=== PATIENT | male | born 1980 | race Caucasian/White ===

== ENCOUNTER 2016-11-27 10:19 | Emergency (ER) | payer OTHER ==
[2016-11-27 11:02] VITALS: BP 138/95; PULSE 84; TEMP 98; BMI 28.3
--- NOTE | 2016-11-27 11:04 | PDOC ---
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 Myers, Ortho. C/O LImited Range of Motion. Timing/Duration: 1-3 hours Severity: moderate Past History - Past Medical History Allergies/Adverse Reactions: Allergies Allergy/AdvReac Type Severity Reaction Status Date / Time adalimumab [From Humira] Allergy Severe Swelling Verified 11/27/16 11:06 clindamycin Allergy Severe Rash Verified 11/27/16 10:22 etanercept [From Enbrel] Allergy Severe Swelling Verified 11/27/16 11:06 infliximab [From Remicade] Allergy Severe Swelling Verified 11/27/16 10:22 methotrexate Allergy Severe Swelling Verified 11/27/16 11:06 Penicillins Allergy Severe Rash Verified 11/27/16 10:22 cephalexin monohydrate Allergy Intermediate Rash Verified 11/27/16 10:22 [From Keflex] Home Medications: Ambulatory Orders Cyclobenzaprine HCl [Flexeril 10 mg] 10 mg PO TID PRN #30 tablet 11/27/16 Ibuprofen 800 mg PO TID #30 tablet 11/27/16 GI Disorders: Yes (IBS, ULCERATIVE COLITIS) HTN: Yes Hypercholesterolemia: Yes Seizures: Yes (01/31/2011) - Surgical History Orthopedic Surgery: Yes (LT KNEE ARTHROSCOPY,CTR) - Psycho/Social/Smoking Cessation Hx Anxiety: No Suicidal Ideation: No Smoking Status: No Smoking History: Never smoked Have you smoked in the past 12 months: No Number of Cigarettes Smoked Daily: 0 'Breaking Loose' booklet given: 01/19/15 Hx Alcohol Use: No Drug/Substance Use Hx: No Substance Use Type: Marijuana Hx Substance Use Treatment: No Review of Systems - Review of Systems Able to Perform ROS?: Yes Is the patient limited Macedonian proficient: No Constitutional: No: Symptoms Reported HEENTM: No: Symptoms Reported Respiratory: No: Symptoms reported Cardiac (ROS): No: Symptoms Reported ABD/GI: No: Symptoms Reported : No: Symptoms Reported Musculoskeletal: Yes: See HPI Integumentary: No: Symptoms Reported Neurological: No: Symptoms reported Psychiatric: No: Anxiety, Depression Endocrine: No: Symptoms Reported Hematologic/Lymphatic: No: Symptoms Reported All Other Systems: Reviewed and Negative *Physical Exam - Physical Exam General Appearance: Yes: Nourished, Appropriately Dressed HEENT: positive: EOMI, DEXTER, Normal ENT Inspection, Normal Voice Neck: positive: Trachea midline, Normal Thyroid, Supple Respiratory/Chest: positive: Lungs Clear. 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 Formal Report to Follow *DC/Admit/Observation/Transfer - Discharge Dispostion Condition at time of disposition: Stable - Prescriptions Prescriptions: Cyclobenzaprine HCl [Flexeril 10 mg] 10 mg PO TID PRN #30 tablet PRN Reason: spasm Ibuprofen 800 mg PO TID #30 tablet - Patient Instructions Printed Discharge Instructions: DI for Shoulder Sprain Additional Instructions: Moses- Follow up with your orthopedic doctor and you most probably need an MRI. No Work until you follow up with your ortho doctor and they tell you the full duty is ok. Bert- Dr. Ángel Ferguson - Post Discharge Activity Work/School Note: Back to Work
== END 2016-11-27 11:41 | disposition home or self-care (01) ==
LOC: FER 10:19
DX: S43.402A Unspecified sprain of left shoulder joint, initial encounter (principal); X58.XXXA Exposure to other specified factors, initial encounter; Y93.9 Activity, unspecified; Y92.9 Unspecified place or not applicable; I10 Essential (primary) hypertension; E78.00 Pure hypercholesterolemia, unspecified; K58.9 Irritable bowel syndrome, unspecified; L40.50 Arthropathic psoriasis, unspecified
CPT/HCPCS: 73030-TC-LT; 99283-25

== ENCOUNTER 2018-02-01 08:53 | Emergency (ER) | payer OTHER ==
[2018-02-01 08:59] VITALS: BP 105/68; PULSE 78; TEMP 98.5; BMI 25.7
--- NOTE | 2018-02-01 10:03 | PDOC ---
History of Present Illness - General Chief Complaint: Injury Stated Complaint: INJURY Time Seen by Provider: 02/01/18 09:47 History Source: Patient Exam Limitations: No Limitations - History of Present Illness Initial Comments: 02/01/18 15:32 pt states he twisted left knee at work today causing pain. no swelling or deformity. pt ambulatory. Past History - Past Medical History Allergies/Adverse Reactions: Allergies Allergy/AdvReac Type Severity Reaction Status Date / Time adalimumab [From Humira] Allergy Severe Swelling Verified 02/01/18 08:59 clindamycin Allergy Severe Rash Verified 02/01/18 08:59 etanercept [From Enbrel] Allergy Severe Swelling Verified 02/01/18 08:59 infliximab [From Remicade] Allergy Severe Swelling Verified 02/01/18 08:59 methotrexate Allergy Severe Swelling Verified 02/01/18 08:59 Penicillins Allergy Severe Rash Verified 02/01/18 08:59 cephalexin monohydrate Allergy Intermediate Rash Verified 02/01/18 08:59 [From Keflex] Home Medications: Ambulatory Orders Folic Acid 1 mg PO DAILY 02/01/18 Methotrexate [Mexate -] 5 mg PO Q7D 02/01/18 Rosuvastatin Calcium [Crestor] 40 mg PO HS 02/01/18 COPD: No DVT: No Dementia: No GI Disorders: Yes (IBS, ULCERATIVE COLITIS) HTN: Yes Hypercholesterolemia: Yes Seizures: Yes (01/31/2011) Other medical history: fibromyalgia, psorisis, arthritis - Surgical History Orthopedic Surgery: Yes (LT KNEE ARTHROSCOPY,CTR) - Immunization History Immunization Up to Date: Yes - Suicide/Smoking/Psychosocial Hx Smoking Status: No Smoking History: Never smoked Have you smoked in the past 12 months: No Number of Cigarettes Smoked Daily: 0 'Breaking Loose' booklet given: 01/19/15 Hx Alcohol Use: No Drug/Substance Use Hx: Yes Substance Use Type: Marijuana Hx Substance Use Treatment: No Trauma Specific PMHX - Complaint Specific PMHX Arthritis: No Back Injury: No Neck Injury: No Hx Sacro Iliac Joint Dysfunction: No Review of Systems - Review of Systems Able to Perform ROS?: Yes Is the patient limited Tamaz[place] proficient: No Constitutional: No: Symptoms Reported HEENTM: No: Symptoms Reported Respiratory: No: Symptoms reported Cardiac (ROS): No: Symptoms Reported ABD/GI: No: Symptoms Reported : No: Symptoms Reported Musculoskeletal: Yes: Symptoms Reported *Physical Exam - Vital Signs Last Vital Signs Temp Pulse Resp BP Pulse Ox 98.5 F 78 16 105/68 96 02/01/18 08:56 02/01/18 08:56 02/01/18 08:56 02/01/18 08:56 02/01/18 08:56 - Physical Exam General Appearance: Yes: Nourished, Appropriately Dressed HEENT: positive: EOMI, DEXTER Neck: positive: Supple Musculoskeletal: positive: Normal Inspection Extremity: positive: Normal Capillary Refill, Normal Inspection, Normal Range of Motion, Other (left knee no bony tenderness, no swelling tender laterally with motion flexion and extension) Integumentary: positive: Normal Color, Dry, Warm Neurologic: positive: Fully Oriented, Alert, Normal Mood/Affect, Normal Response , Motor Strength 09/15 ED Treatment Course - RADIOLOGY Radiology Studies Ordered: Category Date Time Status KNEE 3 POS-LEFT [RAD] Stat Radiology 02/01/18 10:00 Ordered Medical Decision Making - Medical Decision Making 02/01/18 10:01 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 no swelling or deformity pt refused any pain meds will get xray now 02/01/18 15:32 xray is negative refer to ortho pt sees of [facility] he will call him today to make apt 02/01/18 15:33 *DC/Admit/Observation/Transfer Diagnosis at time of Disposition: Sprain of knee Qualifiers: Encounter type: initial encounter Involved ligament of knee: unspecified ligament Laterality: left Qualified Code(s): S83.92XA - Sprain of unspecified site of left knee, initial encounter - Discharge Dispostion Disposition: HOME Condition at time of disposition: Good - Referrals Referrals: Kyree Zavala MD [Primary Care Provider] - - Patient Instructions Additional Instructions: follow with your orthopedist as discussed elevate the knee and apply ice every 2hrs fro 20 minutes use the [place]abo wrap while awake remove to sleep and bathe - Post Discharge Activity Forms/Work/School Notes: Back to Work
== END 2018-02-01 10:27 | disposition home or self-care (01) ==
LOC: JERFT 08:53
DX: S83.92XA Sprain of unspecified site of left knee, initial encounter (principal); X58.XXXA Exposure to other specified factors, initial encounter; Y93.89 Activity, other specified; Y92.9 Unspecified place or not applicable; Y99.0 Civilian activity done for income or pay; I10 Essential (primary) hypertension; E78.00 Pure hypercholesterolemia, unspecified
CPT/HCPCS: 73562-TC-LT-FY; 99281-25

== ENCOUNTER 2018-09-23 10:36 | Emergency (ER) | payer BC, OTHER ==
[2018-09-23] MEDS ORDERED: FAMOTIDINE 20 MG/50 ML IVPB 20 MG/50 ML MG IVPB ONE (10:39)
[2018-09-23] MEDS ORDERED: ACETAMINOPHEN 1000 MG/100 ML VIAL (NON FORMULARY) IVPB ONE (10:39)
[2018-09-23] MEDS ORDERED: SODIUM CHLORIDE 1,000 ML IV STA (10:39)
--- NOTE | 2018-09-23 10:39 | PDOC ---
History of Present Illness - General Chief Complaint: Pain Stated Complaint: ABD PAIN Time Seen by Provider: 09/23/18 10:37 History Source: Patient Exam Limitations: No Limitations - History of Present Illness Initial Comments: 09/23/18 11:45 HPI 38 YOM with h/o PUD, ulcerative colitis (no maintenance meds due to allergies), psoriasis, arthritis presenting with upper abdominal pain x 4-5 days, worse since 2AM. Initially started his symptoms after eating poppy seed bagel. Epigastric pain described as throbbing, 10/10, nonradiating, exacerbated by leg straightening and lying supine, improved with pulling his knees up. Associated with nausea and NBNB emesis. Only drinking water, but having difficulty tolerating his PO meds including his oxycodone/hydrocodone and food. Admits to vomiting x9 per day. Normal BM, nonbloody; has history of chronic loose stools. Has prior history of similar sx, attributed to PUD/gastritis at the time, about 6 months previously. He was previously evaluated at [facility] ER last week - did not want to wait for CT and told his blood work was normal He follows with [facility], has upcoming endoscopy and colonoscopy this week in 3 days on . Last colonoscopy 2 years ago, where he was Dx with UC at that time. Denies fever, chest pain, SOB, palpitation, dizziness, weakness, diarrhea, constipation, bloody stools, bladder and bowel problems, leg swelling, No sick contacts or travel. No new changes in medications. No suspicious food intake Allergies: cef, humira, clinda, pcn, amoxicillin, mtx. Humira, enbrel, remicade Past Medical History: as documented in EMR/HPI Social history: No tobacco, ETOH or drug use. Surgical history: knee, shoulder surgery FH psoriasis and autoimmune disease. Meds: as documented in EMR PMD: Dr Zavala GI: Dr Sosa [facility] Past History - Past Medical History Allergies/Adverse Reactions: Allergies Allergy/AdvReac Type Severity Reaction Status Date / Time adalimumab [From Humira] Allergy Severe Swelling Verified 02/01/18 08:59 clindamycin Allergy Severe Rash Verified 02/01/18 08:59 etanercept [From Enbrel] Allergy Severe Swelling Verified 02/01/18 08:59 infliximab [From Remicade] Allergy Severe Swelling Verified 02/01/18 08:59 methotrexate Allergy Severe Swelling Verified 02/01/18 08:59 Penicillins Allergy Severe Rash Verified 02/01/18 08:59 cephalexin monohydrate Allergy Intermediate Rash Verified 02/01/18 08:59 [From Keflex] Home Medications: Ambulatory Orders Folic Acid 1 mg PO DAILY 02/01/18 Methotrexate [Mexate -] 5 mg PO Q7D 02/01/18 Rosuvastatin Calcium [Crestor] 40 mg PO HS 02/01/18 Ondansetron [Zofran Odt -] 4 mg SL TID PRN #9 od.tablet 09/23/18 COPD: No DVT: No Dementia: No GI Disorders: Yes (IBS, ULCERATIVE COLITIS) HTN: Yes Hypercholesterolemia: Yes Seizures: Yes (01/31/2011) - Surgical History Orthopedic Surgery: Yes (LT KNEE ARTHROSCOPY,CTR) - Immunization History Immunization Up to Date: Yes - Suicide/Smoking/Psychosocial Hx Smoking Status: No Smoking History: Never smoked Have you smoked in the past 12 months: No Number of Cigarettes Smoked Daily: 0 'Breaking Loose' booklet given: 01/19/15 Hx Alcohol Use: No Drug/Substance Use Hx: Yes Substance Use Type: Marijuana Hx Substance Use Treatment: No Review of Systems - Review of Systems Able to Perform ROS?: Yes Comments:: 09/23/18 11:45 Review of systems Constitutional: no fevers or chills. HEENT: no headache or dizziness. No congestion. No visual/hearing disturbances. CVS: no cp or syncope. Resp: no sob. No cough. Gastrointestinal: +abdominal pain, nausea, vomiting; no diarrhea or constipation , no bloody stools Genitourinary: no urinary sx, hematuria. MUSCULOSKELETAL: No joint pain and swelling. No neck or back pain. SKIN: no redness or skin changes, no discharge, no rash. No wounds. Hematologic: no easy bruising/bleeding. NEUROLOGIC: No headache, dizziness, LOC or altered mental status. No weakness, numbness or tingling. Psych: no anxiety or depression Allergic/Immunologic: multiple drug allergies All other systems reviewed and negative, or as documented in HPI. *Physical Exam - Physical Exam Comments: 09/23/18 11:45 Physical exam: General: Well appearing, awake and alert, mild distress 2/2 pain. HEENT: NCAT, PERRL, EOMI, clear conjunctiva, anicteric, moist mucus membranes, clear oropharynx, no oral lesions.. Neck: neck supple, FROM Resp: CTAB, normal and even respirations, no respiratory distress CVS: RRR, no murmurs, 2+ peripheral pulses throughout, no peripheral edema Abdomen: soft, nondistended, +Epigastric TTP, no peritoneal signs. no RLQ or Mcburney's point tenderness, no posadas's sign. Back: nontender, normal inspection and ROM; no CVAT. MSK: no edema, AVELAR x4, ROM intact. No clubbing or cyanosis. normal bulk and tone. Neuro: alert Skin: warm and well perfused, cap refill <2 sec, normal color ED Treatment Course - LABORATORY CBC & Chemistry Diagram: 09/23/18 11:09 09/23/18 11:09 Medical Decision Making - Medical Decision Making 09/23/18 11:27 hpi as documented VS reviewed wnl, nontoxic and nonseptic appearing, +AP no peritoneal signs. DDx abdominal pain: Renal colic, biliary colic, metabolic/electrolyte derangements. GERD, PUD, esophageal spasm, pancreatitis, hepatitis, constipation , colitis, gastroenteritis, cholecystitis, UTI, pyelonephritis, ileus, obstruction, medication side effect, hernia, appendicitis, diverticulitis, mesenteric ischemia. msk strain, mesenteric adenitis, psoas abscess. UC flare. GIB, perf viscus ED course: - prior notes checked - [place] [employer] checked - last rx by Dr Zavala 09/19/18 for percocet 4 day supply - completed, then repeat rx 09/20/18 for vicodin for 5d supply, for 30 tablets to last until 09/25/18 - none left because he either took them all or threw them up. - labs and lytes_wnl, normal Cr. UA neg for infection or blood, some bili LFTs and lipase wnl. - analgesia, pt requests dilaudid - he has home oxy/hydrocodone - not working as he is unable to [place] PO meds. - zofran. - IVF hydration. - CT a/p to eval for obstruction, perf viscus, UC flare, gastritis, mass or other intra abdominal pathology. PO contrast with IV. - completed PO contrast, tolerating without difficulty. pain controlled with several doses of IV dilaudid 09/23/18 14:18 The patient has requested to leave the ED against medical advice. At this time - he did not want to wait for CT results, looks well otherwise and complaining of pain and requesting Dilaudid The patient is manifesting multiple drug seeking attributes. Prior medical records, if available, were reviewed. Discussed with the patient that opioid pain medication will not be rx'd after the ED visit as he is requesting meds to be sent to pharmacy. Alternative analgesia is offered, zofran for n/v. 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 I believe this patient is of sound mind and competent to refuse medical care. The patient is responding and asking questions appropriately. The patient is oriented to person, place and time. The patient is not psychotic, delusional, suicidal, homicidal or hallucinating. The patient demonstrates a normal mental capacity to make decisions regarding their healthcare. The patient is clinically sober and does not appear to be under the influence of any illicit drugs at this time. The patient has been advised of the risks, in layman terms, of leaving AMA which include, but are not limited to cardiac arrest, severe infection, colitis, blood stream infection, obstruction, perforation, dehydration, bleeding, liver failure, myocardial infarction, arrhythmia, stroke , respiratory failure, delay in diagnosis and management, loss of current lifestyle, loss of functional status, multiorgan failure, coma, severe disability and . Alternatives have been offered - the patient remains steadfast in their wish to leave. The patient has been advised that should they change their mind they are welcome to return to this hospital, or any other, at any time. The patient understands that in no way does an AMA discharge mean that I do not want them to have the best medical care available. To this end, I have provided appropriate prescriptions, referrals, and discharge instructions. The patient did sign AMA paperwork. The above discussion was witnessed by another member of staff, ALEXANDR Ling 09/23/18 14:30 CT results with right hepatic angioma. mild hepatosplenomegaly; otherwise no colitis or abdominal pathology called to Dr Zavala with clinical update pt does have GI in 3 days no further narcotics as discussed - last dispense on 09/20/18 - with all 30 tab out and pt changing his story as to which drug he has left and which are gone. 09/23/18 15:[address] Zavala - pt did come to the office. no further narcotics given CT results, no perf. PMD had sent over to pharmacy carafate and pantoprazole for GERD/gastritis management. *DC/Admit/Observation/Transfer Diagnosis at time of Disposition: Abdominal pain - Discharge Dispostion Disposition: AGAINST MEDICAL ADVICE Condition at time of disposition: Stable - Prescriptions Prescriptions: Ondansetron [Zofran Odt -] 4 mg SL TID PRN #9 od.tablet PRN Reason: Nausea - Referrals Referrals: Kyree Zavala MD [Staff Physician] - - Patient Instructions Printed Discharge Instructions: DI for Abdominal Pain-Adult Additional Instructions: You are choosing to leave against medical advice. The patient has been advised of the risks, in layman terms, of leaving AMA which include, but are not limited to cardiac arrest, severe infection, blood stream infection, dehydration, bleeding, liver failure, myocardial infarction, arrhythmia, stroke, respiratory failure, delay in diagnosis and management, loss of current lifestyle, loss of functional status, multiorgan failure, coma, severe disability and . Alternatives have been offered - the patient remains steadfast in their wish to leave. The patient has been advised that should they change their mind they are welcome to return to this hospital, or any other, at any time. You understand that in no way does an AMA discharge mean that I do not want them to have the best medical care available. To this end, I have provided appropriate prescriptions, referrals, and discharge instructions. The patient did sign AMA paperwork. The above discussion was witnessed by another member of staff, ALEXANDR Ling - Post Discharge Activity
[2018-09-23 10:49] VITALS: BP 101/65; PULSE 73; TEMP 98.3; BMI 25.7
[2018-09-23] MEDS ORDERED: ACETAMINOPHEN INJECTION 100 ML IVPB ONE (11:03)
[2018-09-23 11:17] LABS: BASO % 0.6 % (0-2.0); EOS % 0.6 % (0-4.5); HEMATOCRIT 39.3 % (35.4-49); HEMOGLOBIN 13.2 GM/dl (11.7-16.9); LYMPH % 26.1 % (8-40); MCH 30.7 pg (25.7-33.7); MCHC 33.7 g/dl (32.0-35.9); MEAN CELL VOLUME 91.2 fl (80-96); MEAN PLT VOLUME 7.8 fl (7.5-11.1); MONO % 7.9 % (3.8-10.2); NEUT % 64.8 % (42.8-82.8); PLATELET COUNT 232 K/MM3 (134-434); RDW 12.1 % (11.9-15.9)
[2018-09-23] MEDS ORDERED: morphine CARPU-JECT 4 MG/1 ML DISP.SYRIN IVPUSH ONE (11:26)
[2018-09-23] MEDS ORDERED: SODIUM CHLORIDE 0.9% 500 ML INFUS.BAG IV ONE (11:35)
[2018-09-23] MEDS ORDERED: ONDANSETRON 4 MG/2 ML VIAL IVPUSH ONE (11:35)
[2018-09-23] MEDS ORDERED: ONDANSETRON 4 MG/2 ML VIAL ONE (11:35)
[2018-09-23] MEDS ORDERED: HYDROmorphone HCL CARPU-JECT 1 MG/1 ML DISP.SYRIN ONE ×2 (11:36→12:41)
[2018-09-23] MEDS ORDERED: HYDROmorphone HCL CARPU-JECT 1 MG/1 ML DISP.SYRIN IVPUSH ONE ×2 (11:36→11:58)
[2018-09-23 11:37] LABS: BILIRUBIN,TOTAL 0.3 mg/dl (0.2-1); CALCIUM 9.1 mg/dl (8.5-10); CREATININE 0.9 mg/dl (0.55-1.3); POTASSIUM 3.6 mmol/L (3.5-5.1); TOT PROT 6.5 g/dl (6.4-8.2)
[2018-09-23 11:56] LABS: EPITHELIAL CELLS RARE /hpf; URINE MUCUS 2+
== END 2018-09-23 14:30 | disposition left against medical advice (07) ==
LOC: FER 10:36
PROC: 3E033NZ Introduction of Analgesics, Hypnotics, Sedatives into Peripheral Vein, Percutaneous Approach (ICD-10-PCS; principal; 2018-09-23)
PROC: 3E033GC Introduction of Other Therapeutic Substance into Peripheral Vein, Percutaneous Approach (ICD-10-PCS; 2018-09-23)
PROC: 3E0337Z Introduction of Electrolytic and Water Balance Substance into Peripheral Vein, Percutaneous Approach (ICD-10-PCS; 2018-09-23)
DX: R10.13 Epigastric pain (principal); K27.9 Peptic ulcer, site unspecified, unspecified as acute or chronic, without hemorrhage or perforation; I10 Essential (primary) hypertension; K58.9 Irritable bowel syndrome, unspecified; E78.00 Pure hypercholesterolemia, unspecified
CPT/HCPCS: 36415; 74177-TC; 80053; 81003; 81015; 83690; 85025; 99282-25; J0131; J7030

== ENCOUNTER 2021-05-18 16:37 | Emergency (ER) | payer OTHER ==
[2021-05-18 16:45] VITALS: BMI 26.5
[2021-05-18 17:10] VITALS: BP 137/75; PULSE 76; TEMP 97.7
== END 2021-05-18 17:14 | disposition home or self-care (01) ==
LOC: FER 16:37
DX: M54.50 Low back pain, unspecified (principal); W00.0XXA Fall on same level due to ice and snow, initial encounter
CPT/HCPCS: 99281-25

== ENCOUNTER 2022-12-03 02:56 | Emergency (ER) | payer OTHER ==
[2022-12-03 03:04] VITALS: BP 142/100; PULSE 79; RESP 16; TEMP 98.2; BMI 26.6
[2022-12-03] MEDS ORDERED: ACETAMINOPHEN 500 MG TABLET (FP) PO ONE (03:55)
[2022-12-03] MEDS ORDERED: MAG HYDROX/AL HYDROX/SIMETH 30 ML UNIT-DOSE CUP PO ONE (03:56)
[2022-12-03] MEDS ORDERED: FAMOTIDINE 20 MG/50 ML IVPB 20 MG/50 ML MG IVPB ONE (03:56)
== END 2022-12-03 03:30 | disposition left against medical advice (07) ==
LOC: JER 02:56
DX: R10.9 Unspecified abdominal pain (principal); R42 Dizziness and giddiness; R07.2 Precordial pain; R11.0 Nausea
CPT/HCPCS: 99283-25; 99284-25

== ENCOUNTER 2023-04-06 10:25 | Emergency (ER) | payer OTHER ==
[2023-04-06 10:35] VITALS: PULSE 58; BMI 27.4
[2023-04-06] MEDS ORDERED: SODIUM CHLORIDE 0.9% 1000 ML INFUS.BAG IV ONE (10:47)
[2023-04-06] MEDS ORDERED: ACETAMINOPHEN 1000 MG/100 ML BAG IVPB ONE (10:47)
[2023-04-06] MEDS ORDERED: ACETAMINOPHEN INJECTION 100 ML IVPB ONE (10:56)
[2023-04-06] MEDS ORDERED: FAMOTIDINE 20 MG/50 ML IVPB 20 MG/50 ML MG IVPB ONE ×2 (11:01→11:02)
[2023-04-06] MEDS ORDERED: ONDANSETRON 4 MG/2 ML VIAL IVPUSH ONE (11:01)
[2023-04-06] MEDS ORDERED: MAG HYDROX/AL HYDROX/SIMETH 30 ML UNIT-DOSE CUP PO ONE (11:01)
[2023-04-06] MEDS ORDERED: MAG HYDROX/AL HYDROX/SIMETH 30 ML UNIT-DOSE CUP ONE (11:02)
[2023-04-06] MEDS ORDERED: ONDANSETRON 4 MG/2 ML VIAL ONE (11:02)
[2023-04-06 11:08] LABS: HEMATOCRIT 49.9 % (35.4-49); HEMOGLOBIN 16.3 GM/dL (11.7-16.9); MCH 30.1 pg (25.7-33.7); MCHC 32.7 g/dl (32.0-35.9); MEAN CELL VOLUME 91.9 fl (80-96); MEAN PLT VOLUME 8.1 fl (7.5-11.1); PLATELET COUNT 289 10^3/uL (134-434); RBC 5.43 M/mm3 (4.00-5.60); RDW 13.3 % (11.9-15.9); WHITE BLOOD COUNT 12.9 K/mm3 (4.0-10.0)
[2023-04-06] MEDS ORDERED: LIDOCAINE VISCOUS 2% ORAL/TOP 15 ML UNIT-DOSE CUP ONE (11:23)
[2023-04-06 11:28] LABS: POTASSIUM 4.5 mmol/L (3.5-5.1)
[2023-04-06 11:31] LABS: CALCIUM 9.9 mg/dL (8.5-10.1)
[2023-04-06 11:32] LABS: ALBUMIN 4.7 g/dl (3.4-5.0); BLOOD UREA NITROGEN 12.4 mg/dL (7-18)
[2023-04-06 11:36] LABS: BILIRUBIN,TOTAL 0.4 mg/dL (0.2-1); TOT PROT 8.5 g/dl (6.4-8.2)
[2023-04-06] MEDS ORDERED: LIDOCAINE VISCOUS 2% ORAL/TOP 15 ML UNIT-DOSE CUP MM ONE (11:37)
[2023-04-06] MEDS ORDERED: HYDROmorphone HCl 2 MG/ML VIAL IVPUSH ONE (11:49)
[2023-04-06] MEDS ORDERED: HYDROmorphone HCl 2 MG/ML VIAL ONE (11:55)
[2023-04-06 12:16] LABS: MAGNESIUM 2.1 mg/dL (1.8-2.4)
[2023-04-06] MEDS ORDERED: HALOPERIDOL LACTATE 5 MG/ML IVPUSH ONE ×2 (13:53→14:43)
[2023-04-06] MEDS ORDERED: HALOPERIDOL LACTATE 5 MG/ML ONE ×2 (13:54→14:17)
[2023-04-06] MEDS ORDERED: HALOPERIDOL LACTATE 5 MG/ML IM ONE (14:09)
[2023-04-06 15:36] VITALS: BP 139/89; RESP 20; TEMP 98.1
== END 2023-04-06 15:25 | disposition home or self-care (01) ==
LOC: JER 10:25
PROC: 3E033GC Introduction of Other Therapeutic Substance into Peripheral Vein, Percutaneous Approach (ICD-10-PCS; principal; 2023-04-06)
PROC: 3E033NZ Introduction of Analgesics, Hypnotics, Sedatives into Peripheral Vein, Percutaneous Approach (ICD-10-PCS; 2023-04-06)
PROC: 3E033GC Introduction of Other Therapeutic Substance into Peripheral Vein, Percutaneous Approach (ICD-10-PCS; 2023-04-06)
PROC: 3E033GC Introduction of Other Therapeutic Substance into Peripheral Vein, Percutaneous Approach (ICD-10-PCS; 2023-04-06)
PROC: 3E033GC Introduction of Other Therapeutic Substance into Peripheral Vein, Percutaneous Approach (ICD-10-PCS; 2023-04-06)
DX: R10.13 Epigastric pain (principal); R11.2 Nausea with vomiting, unspecified; R68.83 Chills (without fever); R10.11 Right upper quadrant pain
CPT/HCPCS: 36415; 74177-TC; 80053; 83690; 83735; 85027; 99285-25; Q9967

== ENCOUNTER 2023-11-03 07:18 | Emergency (ER) | payer OTHER ==
[2023-11-03 07:27] VITALS: BP 135/87; PULSE 84; RESP 20; TEMP 98.7; BMI 24.9
[2023-11-03] MEDS ORDERED: ONDANSETRON 4 MG/2 ML VIAL ONE ×2 (07:48→09:53)
[2023-11-03] MEDS ORDERED: ACETAMINOPHEN INJECTION 100 ML IVPB ONE (07:48)
[2023-11-03] MEDS: SODIUM CHLORIDE 0.9% 500 ML INFUS.BAG IV ONE (08:02)
[2023-11-03] MEDS: ONDANSETRON 4 MG/2 ML VIAL IVPUSH ONE ×2 (08:03→10:07)
[2023-11-03] MEDS: ACETAMINOPHEN 1000 MG/100 ML BAG IVPB ONE (08:03)
[2023-11-03] MEDS ORDERED: SUCRALFATE 1 GM TABLET (FP) ONE (08:04)
[2023-11-03] MEDS ORDERED: PANTOPRAZOLE SODIUM 40 MG VIAL ONE (08:04)
[2023-11-03] MEDS: SUCRALFATE 1 GM/10 ML UNIT DOSE CUPS PO ONE (08:23)
[2023-11-03] MEDS: PANTOPRAZOLE SODIUM 40 MG VIAL IVPUSH ONE (08:23)
[2023-11-03 08:25] LABS: HEMATOCRIT 44.4 % (35.4-49); HEMOGLOBIN 14.9 GM/dL (11.7-16.9); MCHC 33.7 g/dl (32.0-35.9); MEAN PLT VOLUME 8.4 fl (7.5-11.1); PLATELET COUNT 277 10^3/uL (134-434); RBC 4.82 M/mm3 (4.00-5.60); RDW 13.5 % (11.9-15.9); WHITE BLOOD COUNT 10.5 K/mm3 (4.0-10.0)
[2023-11-03] MEDS ORDERED: HYDROmorphone HCL CARPU-JECT 2 MG/1 ML DISP.SYRIN ONE ×2 (08:25→09:51)
[2023-11-03] MEDS: HYDROmorphone HCl 2 MG/ML VIAL IVPUSH ONE (08:28)
[2023-11-03 08:32] LABS: INR 0.93 (0.83-1.09); PROTHROMBIN TIME (PATIENT) 10.7 SEC (9.7-13.0)
[2023-11-03 08:35] LABS: ACTIVATED PTT 32.1 SECONDS (25.2-36.5)
[2023-11-03 08:44] LABS: ALBUMIN 4.4 g/dl (3.4-5.0); CALCIUM 9.8 mg/dL (8.5-10.1)
[2023-11-03 08:45] LABS: BLOOD UREA NITROGEN 16.3 mg/dL (7-18)
[2023-11-03 08:47] LABS: CREATININE 0.9 mg/dL (0.55-1.3)
[2023-11-03 08:49] LABS: BILIRUBIN,TOTAL 0.5 mg/dL (0.2-1); TOT PROT 7.5 g/dl (6.4-8.2)
[2023-11-03 09:35] LABS: ANISOCYTOSIS 0; MACROCYTOSIS 0
[2023-11-03] MEDS: HYDROmorphone HCl 2 MG/ML VIAL IVPB ONE (09:58)
[2023-11-03 11:44] LABS: ERYTHROCYTE SEDIMENTATION RATE 5 mm/hr (0-10)
== END 2023-11-03 14:50 | disposition home or self-care (01) ==
LOC: JER 07:18
PROC: 3E033NZ Introduction of Analgesics, Hypnotics, Sedatives into Peripheral Vein, Percutaneous Approach (ICD-10-PCS; principal; 2023-11-03)
PROC: 3E033NZ Introduction of Analgesics, Hypnotics, Sedatives into Peripheral Vein, Percutaneous Approach (ICD-10-PCS; 2023-11-03)
PROC: 3E033GC Introduction of Other Therapeutic Substance into Peripheral Vein, Percutaneous Approach (ICD-10-PCS; 2023-11-03)
PROC: 3E033GC Introduction of Other Therapeutic Substance into Peripheral Vein, Percutaneous Approach (ICD-10-PCS; 2023-11-03)
DX: K27.9 Peptic ulcer, site unspecified, unspecified as acute or chronic, without hemorrhage or perforation (principal); R10.13 Epigastric pain; R11.2 Nausea with vomiting, unspecified
CPT/HCPCS: 36415; 71045-TC-FY; 74177-TC; 76705-TC; 80053; 83690; 84484; 85025; 85610; 85651; 85730; 86140; 86850; 86900; 86901; 93005; 93010; 99285-25; Q9967

== ENCOUNTER 2023-11-08 19:58 | Emergency (ER) | payer OTHER ==
[2023-11-08 20:06] VITALS: BP 165/95; PULSE 79; RESP 18; TEMP 97.4; BMI 27.4
[2023-11-08] MEDS: SODIUM CHLORIDE 0.9% 500 ML INFUS.BAG IV ONE (20:35)
[2023-11-08] MEDS ORDERED: HYDROmorphone HCL CARPU-JECT 2 MG/1 ML DISP.SYRIN ONE ×2 (20:37→21:59)
[2023-11-08] MEDS ORDERED: ONDANSETRON 4 MG/2 ML VIAL ONE (20:38)
[2023-11-08] MEDS: ONDANSETRON 4 MG/2 ML VIAL IVPUSH ONE (20:46)
[2023-11-08] MEDS: HYDROmorphone HCl 2 MG/ML VIAL IVPUSH ONE ×2 (20:46→22:04)
[2023-11-08] MEDS: PANTOPRAZOLE SODIUM 40 MG VIAL IVPUSH ONE (20:46)
[2023-11-08 20:52] LABS: BASO % 0.9 % (0-2.0); EOS % 0.7 % (0-4.5); HEMATOCRIT 44.5 % (35.4-49); HEMOGLOBIN 15.1 GM/dL (11.7-16.9); LYMPH % 19.3 % (8-40); MCH 30.8 pg (25.7-33.7); MCHC 33.9 g/dl (32.0-35.9); MEAN CELL VOLUME 90.8 fl (80-96); MEAN PLT VOLUME 8.4 fl (7.5-11.1); MONO % 6.5 % (3.8-10.2); NEUT % 72.6 % (42.8-82.8); PLATELET COUNT 303 10^3/uL (134-434); RBC 4.91 M/mm3 (4.00-5.60); RDW 13.2 % (11.9-15.9); WHITE BLOOD COUNT 8.2 K/mm3 (4.0-10.0)
[2023-11-08 21:08] LABS: POTASSIUM 3.8 mmol/L (3.5-5.1)
[2023-11-08 21:10] LABS: ALBUMIN 4.6 g/dl (3.4-5.0); CALCIUM 9.8 mg/dL (8.5-10.1)
[2023-11-08 21:11] LABS: BLOOD UREA NITROGEN 18.3 mg/dL (7-18); MAGNESIUM 2.1 mg/dL (1.8-2.4)
[2023-11-08 21:15] LABS: BILIRUBIN,TOTAL 0.6 mg/dL (0.2-1); TOT PROT 8.1 g/dl (6.4-8.2)
[2023-11-08] MEDS ORDERED: SUCRALFATE 1 GM TABLET (FP) ONE (21:26)
[2023-11-08] MEDS: SUCRALFATE 1 GM/10 ML UNIT DOSE CUPS PO ONE (21:40)
== END 2023-11-08 23:12 | disposition home or self-care (01) ==
LOC: JER 19:58
PROC: 3E033NZ Introduction of Analgesics, Hypnotics, Sedatives into Peripheral Vein, Percutaneous Approach (ICD-10-PCS; principal; 2023-11-08)
PROC: 3E033NZ Introduction of Analgesics, Hypnotics, Sedatives into Peripheral Vein, Percutaneous Approach (ICD-10-PCS; 2023-11-08)
PROC: 3E033GC Introduction of Other Therapeutic Substance into Peripheral Vein, Percutaneous Approach (ICD-10-PCS; 2023-11-08)
PROC: 3E033GC Introduction of Other Therapeutic Substance into Peripheral Vein, Percutaneous Approach (ICD-10-PCS; 2023-11-08)
DX: R10.13 Epigastric pain (principal); R11.2 Nausea with vomiting, unspecified
CPT/HCPCS: 36415; 71045-TC-FY; 80053; 83605; 83690; 83735; 84484; 85025; 99284-25

== ENCOUNTER 2023-12-03 12:13 | Observation (INO) | payer OTHER ==
[2023-12-03] MEDS ORDERED: ONDANSETRON 4 MG/2 ML VIAL ONE (13:23)
[2023-12-03] MEDS ORDERED: MAG HYDROX/AL HYDROX/SIMETH 30 ML UNIT-DOSE CUP ONE (13:23)
[2023-12-03] MEDS: ONDANSETRON 4 MG/2 ML VIAL IVPUSH ONE (13:23)
[2023-12-03] MEDS: FAMOTIDINE 20 MG/50 ML IVPB 20 MG/50 ML MG IVPB ONE (13:23)
[2023-12-03] MEDS: MAG HYDROX/AL HYDROX/SIMETH 30 ML UNIT-DOSE CUP PO ONE (13:23)
[2023-12-03] MEDS ORDERED: FAMOTIDINE 20 MG/50 ML IVPB 20 MG/50 ML MG IVPB ONE (13:23)
[2023-12-03 13:34] LABS: BASO % 0.8 % (0-2.0); EOS % 1.1 % (0-4.5); HEMATOCRIT 42.7 % (35.4-49); HEMOGLOBIN 14.9 GM/dL (11.7-16.9); LYMPH % 29.5 % (8-40); MEAN CELL VOLUME 91.2 fl (80-96); MEAN PLT VOLUME 8.5 fl (7.5-11.1); MONO % 6.7 % (3.8-10.2); NEUT % 61.9 % (42.8-82.8); PLATELET COUNT 231 10^3/uL (134-434); RBC 4.68 M/mm3 (4.00-5.60); RDW 13.3 % (11.9-15.9); WHITE BLOOD COUNT 6.1 K/mm3 (4.0-10.0)
[2023-12-03 13:40] LABS: INR 0.98 (0.83-1.09); PROTHROMBIN TIME (PATIENT) 11.3 SEC (9.7-13.0)
[2023-12-03 13:43] LABS: ACTIVATED PTT 32.2 SECONDS (25.2-36.5)
[2023-12-03 13:50] LABS: ALBUMIN 4.2 g/dl (3.4-5.0); CALCIUM 9.8 mg/dL (8.5-10.1)
[2023-12-03 13:51] LABS: BLOOD UREA NITROGEN 14.6 mg/dL (7-18); MAGNESIUM 2.1 mg/dL (1.8-2.4)
[2023-12-03 13:55] LABS: BILIRUBIN,TOTAL 0.3 mg/dL (0.2-1); TOT PROT 7.2 g/dl (6.4-8.2)
[2023-12-03] MEDS ORDERED: morphine SULFATE 4 MG/ML VIAL ONE (14:03)
[2023-12-03] MEDS: morphine CARPU-JECT 4 MG/1 ML DISP.SYRIN IVPUSH ONE (14:08)
[2023-12-03] MEDS: SODIUM CHLORIDE 0.9% 500 ML INFUS.BAG IV ONE ×2 (15:23→22:21)
[2023-12-03] MEDS ORDERED: HYDROmorphone HCL CARPU-JECT 2 MG/1 ML DISP.SYRIN ONE ×2 (17:10→22:05)
[2023-12-03] MEDS: HYDROmorphone HCl 2 MG/ML VIAL IVPUSH ONE (17:21)
[2023-12-03] MEDS ORDERED: SUCRALFATE 1 GM TABLET (FP) ONE (22:04)
[2023-12-03] MEDS ORDERED: ACETAMINOPHEN INJECTION 100 ML IVPB ONE (22:05)
[2023-12-03] MEDS: SUCRALFATE 1 GM TABLET (FP) PO SCH (22:20)
[2023-12-03] MEDS: ACETAMINOPHEN 1000 MG/100 ML BAG IVPB ONE (22:20)
[2023-12-03] MEDS: HYDROmorphone HCL CARPU-JECT 2 MG/1 ML DISP.SYRIN IVPUSH ONE (22:21)
[2023-12-04] MEDS ORDERED: HYDROmorphone HCL CARPU-JECT 2 MG/1 ML DISP.SYRIN ONE (00:11)
[2023-12-04] MEDS ORDERED: ACETAMINOPHEN INJECTION 100 ML IVPB ONE (00:13)
[2023-12-04] MEDS: ACETAMINOPHEN 1000 MG/100 ML BAG IVPB ONE (00:22)
[2023-12-04] MEDS: HYDROmorphone HCl 2 MG/ML VIAL IVPUSH ONE ×3 (00:22→07:35)
[2023-12-04] MEDS: ONDANSETRON 4 MG/2 ML VIAL IVPUSH PRN (01:14)
[2023-12-04] MEDS: DEXTROSE 5%-0.45% SALINE 1,000 ML IV SCH (02:29)
[2023-12-04] MEDS: HYDROmorphone HCL CARPU-JECT 2 MG/1 ML DISP.SYRIN IVPB ONE ×2 (03:33→04:36)
[2023-12-04 06:05] VITALS: BMI 23.3
[2023-12-04] MEDS: ACETAMINOPHEN 1000 MG/100 ML BAG IVPB SCH (06:43)
[2023-12-04] MEDS: SUCRALFATE 1 GM TABLET (FP) PO SCH (06:44)
[2023-12-04] MEDS: HYDROmorphone HCL CARPU-JECT 2 MG/1 ML DISP.SYRIN IVPB PRN ×2 (08:37→12:48)
[2023-12-04 08:49] VITALS: BP 128/79; PULSE 54; RESP 18; TEMP 97.3
[2023-12-04 09:04] LABS: BASO % 0.5 % (0-2.0); HEMATOCRIT 37.5 % (35.4-49); HEMOGLOBIN 12.8 GM/dL (11.7-16.9); LYMPH % 31.3 % (8-40); MCH 31.6 pg (25.7-33.7); MCHC 34.3 g/dl (32.0-35.9); MEAN CELL VOLUME 92.3 fl (80-96); MEAN PLT VOLUME 8.6 fl (7.5-11.1); MONO % 9.2 % (3.8-10.2); PLATELET COUNT 208 10^3/uL (134-434); RBC 4.06 M/mm3 (4.00-5.60); RDW 12.8 % (11.9-15.9); WHITE BLOOD COUNT 5.1 K/mm3 (4.0-10.0)
[2023-12-04 09:29] LABS: POTASSIUM 3.7 mmol/L (3.5-5.1)
[2023-12-04 09:33] LABS: BLOOD UREA NITROGEN 12.4 mg/dL (7-18); CALCIUM 8.8 mg/dL (8.5-10.1)
[2023-12-04 09:36] LABS: CREATININE 0.8 mg/dL (0.55-1.3)
[2023-12-04 09:37] LABS: CHOLESTEROL 213 mg/dL (50-200)
[2023-12-04 09:38] LABS: LDL CHOLESTEROL (ONLY SJRH) 139 mg/dL (5-100)
[2023-12-04 09:40] LABS: HDL CHOLESTEROL 53 mg/dL (40-60)
[2023-12-04] MEDS: PANTOPRAZOLE 40 MG TABLET PO SCH (10:14)
[2023-12-04 13:50] LABS: PH,URINE 5.5 (5.0-8.0); URINE APPEARANCE CLEAR; URINE BILIRUBIN NEGATIVE (NEGATIVE); URINE COLOR YELLOW; URINE GLUCOSE (UA) NEGATIVE (NEGATIVE); URINE KETONE NEGATIVE (NEGATIVE); URINE LEUK ESTERASE NEGATIVE (NEGATIVE); URINE NITRITE NEGATIVE (NEGATIVE); URINE PROTEIN NEGATIVE (NEGATIVE); URINE UROBILINOGEN 0.2 mg/dL (0.2-1.0)
[2023-12-04] MEDS ORDERED: MAG HYDROX/AL HYDROX/SIMETH 30 ML UNIT-DOSE CUP PO PRN (15:47)
== END 2023-12-04 17:37 | disposition left against medical advice (07) ==
LOC: JER 12:13 → JERBED 19:38 → J7W 12-04 00:34
PROVIDERS: ADMIT Internal Medicine; ATTEND Nurse Practitioner
PROC: 3E033NZ Introduction of Analgesics, Hypnotics, Sedatives into Peripheral Vein, Percutaneous Approach (ICD-10-PCS; principal; 2023-12-03)
PROC: 3E0337Z Introduction of Electrolytic and Water Balance Substance into Peripheral Vein, Percutaneous Approach (ICD-10-PCS; 2023-12-03)
PROC: 3E03329 Introduction of Other Anti-infective into Peripheral Vein, Percutaneous Approach (ICD-10-PCS; 2023-12-03)
PROC: 3E033NZ Introduction of Analgesics, Hypnotics, Sedatives into Peripheral Vein, Percutaneous Approach (ICD-10-PCS; 2023-12-03)
PROC: 3E0337Z Introduction of Electrolytic and Water Balance Substance into Peripheral Vein, Percutaneous Approach (ICD-10-PCS; 2023-12-03)
DX: K58.9 Irritable bowel syndrome, unspecified (principal); R10.11 Right upper quadrant pain; E78.5 Hyperlipidemia, unspecified; K76.9 Liver disease, unspecified; K76.0 Fatty (change of) liver, not elsewhere classified; M79.7 Fibromyalgia; K44.9 Diaphragmatic hernia without obstruction or gangrene; F41.8 Other specified anxiety disorders; F11.20 Opioid dependence, uncomplicated; L40.50 Arthropathic psoriasis, unspecified; R19.7 Diarrhea, unspecified; Z88.8 Allergy status to other drugs, medicaments and biological substances
CPT/HCPCS: 36415; 76705-TC; 80048; 80053; 80061; 81003; 83690; 83735; 85025; 85610; 85730; 93005; 93010; 96365; 96367; 96375; 96376; 99285-25; G0378; J0131

== ENCOUNTER 2024-05-25 15:31 | Emergency (ER) | payer OTHER ==
[2024-05-25] MEDS ORDERED: ONDANSETRON 4 MG/2 ML VIAL ONE (16:24)
[2024-05-25] MEDS ORDERED: ACETAMINOPHEN INJECTION 100 ML ONE (16:24)
[2024-05-25] MEDS ORDERED: FAMOTIDINE 20 MG/50 ML IVPB 20 MG/50 ML MG IVPB ONE (16:24)
[2024-05-25] MEDS: ACETAMINOPHEN 1000 MG/100 ML BAG IVPB ONE (16:37)
[2024-05-25 16:38] VITALS: BP 126/81; PULSE 82; RESP 18; TEMP 98; BMI 24.2
[2024-05-25] MEDS: FAMOTIDINE 20 MG/50 ML IVPB 20 MG/50 ML MG IVPB ONE (16:38)
[2024-05-25] MEDS: ONDANSETRON 4 MG/2 ML VIAL IVPUSH ONE (16:38)
[2024-05-25 16:40] LABS: BASO % 0.9 % (0-2.0); EOS % 1.1 % (0-4.5); HEMATOCRIT 42.3 % (35.4-49); HEMOGLOBIN 14.3 GM/dL (11.7-16.9); LYMPH % 16.7 % (8-40); MCH 30.9 pg (25.7-33.7); MCHC 33.9 g/dl (32.0-35.9); MEAN CELL VOLUME 91.2 fl (80-96); MONO % 7.9 % (3.8-10.2); NEUT % 73.4 % (42.8-82.8); PLATELET COUNT 274 10^3/uL (134-434); RBC 4.63 M/mm3 (4.00-5.60); RDW 13.1 % (11.9-15.9); WHITE BLOOD COUNT 8.4 K/mm3 (4.0-10.0)
[2024-05-25 17:09] LABS: CALCIUM 9.6 mg/dL (8.5-10.1)
[2024-05-25 17:10] LABS: BLOOD UREA NITROGEN 21.3 mg/dL (7-18)
[2024-05-25 17:13] LABS: CREATININE 0.9 mg/dL (0.55-1.3)
[2024-05-25 17:15] LABS: BILIRUBIN,TOTAL 0.4 mg/dL (0.2-1); TOT PROT 7.2 g/dl (6.4-8.2)
[2024-05-25] MEDS ORDERED: HALOPERIDOL LACTATE 5 MG/ML IM ONE (17:19)
[2024-05-25] MEDS ORDERED: HALOPERIDOL LACTATE 5 MG/ML ONE (17:36)
[2024-05-25] MEDS ORDERED: HYDROmorphone HCL 2 MG TABLET PO ONE (17:45)
[2024-05-25] MEDS: KETAMINE HCL 200 MG/20 ML VIAL IVPB ONE ×2 (17:51)
[2024-05-25] MEDS: HALOPERIDOL LACTATE 5 MG/ML IM ONE (17:51)
== END 2024-05-25 18:06 | disposition left against medical advice (07) ==
LOC: JER 15:31
PROC: 3E033GC Introduction of Other Therapeutic Substance into Peripheral Vein, Percutaneous Approach (ICD-10-PCS; principal; 2024-05-25)
PROC: 3E033NZ Introduction of Analgesics, Hypnotics, Sedatives into Peripheral Vein, Percutaneous Approach (ICD-10-PCS; 2024-05-25)
PROC: 3E033GC Introduction of Other Therapeutic Substance into Peripheral Vein, Percutaneous Approach (ICD-10-PCS; 2024-05-25)
DX: R10.13 Epigastric pain (principal); R11.10 Vomiting, unspecified; R19.7 Diarrhea, unspecified; R10.11 Right upper quadrant pain; Z20.822 Contact with and (suspected) exposure to COVID-19
CPT/HCPCS: 0241U-QW; 36415; 71046-TC-FY; 80053; 83690; 84484; 85025; 93005; 93010; 99285-25; J0131